=== PATIENT | male | born 1945 | race Caucasian/White ===

== ENCOUNTER 2019-04-09 11:07 | Emergency (ER) | payer OTHER ==
[~2019-04-09] VITALS: Ht 170.2 cm; Wt 72.6 kg
[~2019-04-09 11:07] MED LIST: ALLOPURINOL100 MG; LISINOPRIL10 MG; NABUMETONE500 MG PO; PERCOCET 5/3251 TAB PO
== END 2019-04-09 14:50 | disposition home or self-care (01) ==
LOC: ER 11:07
DX: S01.02XA Laceration with foreign body of scalp, initial encounter (principal); W18.09XA Striking against other object with subsequent fall, initial encounter; Y93.89 Activity, other specified; Y92.89 Other specified places as the place of occurrence of the external cause; Y99.8 Other external cause status

== ENCOUNTER 2019-04-16 15:37 | Emergency (ER) | payer OTHER ==
[~2019-04-16] VITALS: Ht 172.7 cm; Wt 63.5 kg
== END 2019-04-16 17:25 | disposition home or self-care (01) ==
LOC: ER 15:37
DX: Z48.02 Encounter for removal of sutures (principal)

== ENCOUNTER 2020-12-02 08:15 | Inpatient (IN) | payer OTHER ==
[~2020-12-02] VITALS: Ht 170.2 cm; Wt 85.7 kg
[2020-12-02] MEDS ORDERED: ATORVASTA PO (08:52)
[2020-12-02] MEDS ORDERED: LISINOP PO (08:52)
[2020-12-08] MEDS ORDERED: LISINOPRIL10 MG (13:06)
[2020-12-08] MEDS ORDERED: ATORVASTATIN CA10 MG (13:06)
[2020-12-08] MEDS ORDERED: ALLOPURINOL100 MG (13:06)
[2020-12-10] MEDS ORDERED: PERCOCET 5-3251 EACH PO (11:35)
[2020-12-10] MEDS ORDERED: DUI500 PO (11:35)
[2020-12-10] MEDS ORDERED: ELIQUIS2.5 MG PO (11:35)
== END 2020-12-10 19:01 | DRG 470 ==
LOC: SURH 08:15 → O/R 12-08 06:09 → SURH 12-08 06:09
PROVIDERS: ADMIT Orthopaedic Surgery; ATTEND Orthopaedic Surgery
PROC: 0SRD0J9 Replacement of Left Knee Joint with Synthetic Substitute, Cemented, Open Approach (ICD-10-PCS; principal; 2020-12-08 20:00)
DX: M17.12 Unilateral primary osteoarthritis, left knee (principal); D62 Acute posthemorrhagic anemia; D69.6 Thrombocytopenia, unspecified